=== PATIENT | female | born 2000 | race Caucasian/White ===

== ENCOUNTER 2018-11-09 19:51 | Emergency (ER) | payer BC ==
--- NOTE | 2018-11-09 19:58 | ER Report ---
History and Physical Time Seen By MD: 19:58 HPI/ROS CHIEF COMPLAINT: Syncope HISTORY OF PRESENT ILLNESS: 18-year-old female presents with dizziness and near- syncope this afternoon. Patient admits she was out drinking last night. She woke up with a mild headache and a hangover this morning. She ate and felt better. She also noted the onset of cold symptoms this morning. She's had a sore throat. She notes no fever. She notes that several of her friends have been sick, but nobody he's had strep throat. Patient this afternoon, went to the bathroom and had diarrhea. She got diaphoretic and clammy with a bout of nausea while on the toilet. She thought a warm shower might make her feel better. She turned on the shower and then she blacked out and was on the floor. She denies any injuries. Patient states last menstrual period was 2 months ago, which she has an IUD and she is sexually active. She denies . Patient denies vaginal bleeding or spotting. Patient denies dysuria. REVIEW OF SYSTEMS: Respiratory: No cough, no dyspnea. Cardiovascular: No chest pain, no palpitations. Gastrointestinal: No vomiting, no abdominal pain. Musculoskeletal: No back pain. Allergies: Coded Allergies: No Known Drug Allergies (Unverified , 11/09/18) Home Meds Active Scripts Ondansetron 4 Mg Odt (ONDANSETRON 4 MG ODT) 4 Mg Tab.rapdis, 4 MG PO Q6H PRN for NAUSEA/VOMITING, #15 TAB Prov:LUDMILA KHAN DO 11/09/18 Reviewed Nurses Notes: Yes Old Medical Records Reviewed: Yes Constitutional Vital Sign - Last 24 Hours 11/09/18 11/09/18 11/09/18 11/09/18 19:51 20:00 20:03 20:06 Pulse ??? 74 65 Resp 12 6 B/P (MAP) 132/77 (95) 132/77 Pulse Ox 93 92 O2 Delivery Room Air 11/09/18 11/09/18 11/09/18 11/09/18 20:21 20:30 20:36 20:51 Pulse 63 65 65 Resp 6 20 18 B/P (MAP) 117/70 (86) Pulse Ox 92 93 92 11/09/18 11/09/18 11/09/18 11/09/18 21:00 21:06 21:21 21:30 Pulse 63 65 Resp 19 16 B/P (MAP) 122/63 (82) ???/??? (1665) Pulse Ox 93 92 11/09/18 11/09/18 11/09/18 11/09/18 21:36 21:41 21:56 22:00 Pulse ??? 69 67 B/P (MAP) 115/63 (80) Pulse Ox 91 92 11/09/18 11/09/18 11/09/18 11/09/18 22:11 22:26 22:30 22:41 Pulse 75 65 ??? B/P (MAP) 105/62 (76) Pulse Ox 92 91 93 Physical Exam General Appearance: The patient is alert, has no immediate need for airway protection and no current signs of toxicity. Vital signs stable, afebrile, pulse ox normal HEENT: Pupils equal and round no injection. TMs normal, oropharynx with mild erythema, no exudate or petechiae, no tonsillar hypertrophy Respiratory: Chest is non tender, lungs are clear to auscultation. No wheezing or rails, no chest wall tenderness Cardiac: regular rate and rhythm, no murmur Gastrointestinal: Abdomen is soft and non tender, no masses, bowel sounds gabriele l. Musculoskeletal: Neck: Neck is supple and non tender. No lymphadenopathy or meningismus Extremities have full range of motion and are non tender. No edema, no calf tenderness Skin: No rashes or lesions. DIFFERENTIAL DIAGNOSIS: After history and physical exam differential diagnosis was considered for syncope including but not limited to vasovagal syncope, arrhythmia, dehydration, viral syndrome and blood loss. Medical Decision Making Data Points Result Diagram: 11/09/18201511/09/182015 Laboratory Hematology Test 11/09/18 20:16 11/09/18 21:39 Red Blood Count 5.22 M/uL (4.17-5.56) Mean Corpuscular Volume 89.4 fL (80.0-96.0) Mean Corpuscular Hemoglobin 29.8 pg (26.0-33.0) Mean Corpuscular Hemoglobin Concent 33.3 g/dL (32.0-36.0) Red Cell Distribution Width 13.0 % (11.5-14.5) Mean Platelet Volume 11.3 fL (7.2-11.1) Neutrophils (%) (Auto) 79.9 % (39.4-72.5) Lymphocytes (%) (Auto) 8.5 % (17.6-49.6) Monocytes (%) (Auto) 9.6 % (4.1-12.4) Eosinophils (%) (Auto) 1.7 % (0.4-6.7) Basophils (%) (Auto) 0.3 % (0.3-1.4) Nucleated RBC Relative Count (auto) 0.0 /100WBC Neutrophils # (Auto) 7.6 K/uL (2.0-7.4) Lymphocytes # (Auto) 0.8 K/uL (1.3-3.6) Monocytes # (Auto) 0.9 K/uL (0.3-1.0) Eosinophils # (Auto) 0.2 K/uL (0.0-0.5) Basophils # (Auto) 0.0 K/uL (0.0-0.1) Nucleated RBC Absolute Count (auto) 0.00 K/uL Sodium Level 141 mmol/L (137-145) Potassium Level 3.5 mmol/L (3.5-5.0) Chloride Level 106 mmol/L (98-107) Carbon Dioxide Level 24 mmol/L (22-31) Blood Urea Nitrogen 12 mg/dl (7-18) Creatinine 0.90 mg/dl (0.52-1.04) Glomerular Filtration Rate Calc > 60.0 Random Glucose 147 mg/dl (75-110) Calcium Level 9.1 mg/dl (8.4-10.2) Total Bilirubin 0.8 mg/dl (0.2-1.3) Aspartate Amino Transf (AST/SGOT) 17 U/L (0-35) Alanine Aminotransferase (ALT/SGPT) 11 U/L (0-56) Alkaline Phosphatase 75 U/L (0-126) Total Protein 7.4 g/dl (6.3-8.2) Albumin 4.4 g/dl (3.5-5.0) Human Chorionic Gonadotropin, Qual Negative (NEGATIVE) Urine Color Yellow Urine Clarity Clear Urine pH 5.0 pH (4.8-9.5) Urine Specific [place] 1.029 Urine Protein Negative mg/dL (NEGATIVE) Urine Glucose (UA) Negative mg/dL (NEGATIVE) Urine Ketones Negative mg/dL (NEGATIVE) Urine Blood Negative (NEGATIVE) Urine Nitrite Negative (NEGATIVE) Urine Bilirubin Negative (NEGATIVE) Urine Urobilinogen Negative mg/dL (0.2-1.9) Urine Leukocyte Esterase Negative (NEGATIVE) Urine RBC 1 /HPF (0-2/HPF) Urine WBC 7 /HPF (0-5/HPF) Urine Squamous Epithelial Cells Many /LPF (</=FEW) Urine Bacteria Negative /HPF (NONE-FEW) Urine Mucus Few /HPF (NONE-FEW) Chemistry Test 11/09/18 20:16 11/09/18 21:39 White Blood Count 9.5 k/uL (4.5-11.0) Red Blood Count 5.22 M/uL (4.17-5.56) Hemoglobin 15.5 g/dL (12.0-16.0) Hematocrit 46.6 % (34.0-47.0) Mean Corpuscular Volume 89.4 fL (80.0-96.0) Mean Corpuscular Hemoglobin 29.8 pg (26.0-33.0) Mean Corpuscular Hemoglobin Concent 33.3 g/dL (32.0-36.0) Red Cell Distribution Width 13.0 % (11.5-14.5) Platelet Count 145 K/uL (150-450) Mean Platelet Volume 11.3 fL (7.2-11.1) Neutrophils (%) (Auto) 79.9 % (39.4-72.5) Lymphocytes (%) (Auto) 8.5 % (17.6-49.6) Monocytes (%) (Auto) 9.6 % (4.1-12.4) Eosinophils (%) (Auto) 1.7 % (0.4-6.7) Basophils (%) (Auto) 0.3 % (0.3-1.4) Nucleated RBC Relative Count (auto) 0.0 /100WBC Neutrophils # (Auto) 7.6 K/uL (2.0-7.4) Lymphocytes # (Auto) 0.8 K/uL (1.3-3.6) Monocytes # (Auto) 0.9 K/uL (0.3-1.0) Eosinophils # (Auto) 0.2 K/uL (0.0-0.5) Basophils # (Auto) 0.0 K/uL (0.0-0.1) Nucleated RBC Absolute Count (auto) 0.00 K/uL Glomerular Filtration Rate Calc > 60.0 Calcium Level 9.1 mg/dl (8.4-10.2) Total Bilirubin 0.8 mg/dl (0.2-1.3) Aspartate Amino Transf (AST/SGOT) 17 U/L (0-35) Alanine Aminotransferase (ALT/SGPT) 11 U/L (0-56) Alkaline Phosphatase 75 U/L (0-126) Total Protein 7.4 g/dl (6.3-8.2) Albumin 4.4 g/dl (3.5-5.0) Human Chorionic Gonadotropin, Qual Negative (NEGATIVE) Urine Color Yellow Urine Clarity Clear Urine pH 5.0 pH (4.8-9.5) Urine Specific [place] 1.029 Urine Protein Negative mg/dL (NEGATIVE) Urine Glucose (UA) Negative mg/dL (NEGATIVE) Urine Ketones Negative mg/dL (NEGATIVE) Urine Blood Negative (NEGATIVE) Urine Nitrite Negative (NEGATIVE) Urine Bilirubin Negative (NEGATIVE) Urine Urobilinogen Negative mg/dL (0.2-1.9) Urine Leukocyte Esterase Negative (NEGATIVE) Urine RBC 1 /HPF (0-2/HPF) Urine WBC 7 /HPF (0-5/HPF) Urine Squamous Epithelial Cells Many /LPF (</=FEW) Urine Bacteria Negative /HPF (NONE-FEW) Urine Mucus Few /HPF (NONE-FEW) Urinalysis Test 11/09/18 21:39 Urine Color Yellow Urine Clarity Clear Urine pH 5.0 pH (4.8-9.5) Urine Specific [place] 1.029 Urine Protein Negative mg/dL (NEGATIVE) Urine Glucose (UA) Negative mg/dL (NEGATIVE) Urine Ketones Negative mg/dL (NEGATIVE) Urine Blood Negative (NEGATIVE) Urine Nitrite Negative (NEGATIVE) Urine Bilirubin Negative (NEGATIVE) Urine Urobilinogen Negative mg/dL (0.2-1.9) Urine Leukocyte Esterase Negative (NEGATIVE) Urine RBC 1 /HPF (0-2/HPF) Urine WBC 7 /HPF (0-5/HPF) Urine Squamous Epithelial Cells Many /LPF (</=FEW) Urine Bacteria Negative /HPF (NONE-FEW) Urine Mucus Few /HPF (NONE-FEW) EKG/Imaging EKG Interpretation 12 lead EK Rhythm: normal sinus rhythm [place]: normal QRS: normal ST segments: normal, no evidence of ischemia or dysrhythmia ED Course/Re-evaluation Clinical Indication for ER IV: Hydration, IV Access ED Course Patient was admitted to an examination room. H&P was done. The differential diagnoses was considered. Patient on clinical examination is stable vital signs. She is feeling ill, has had vomiting and had syncope. Patient was out last night drinking and has a hangover this morning she felt better after eating. She subsequently his cold symptoms and sounds like she suffered vasovagal syncope. She was treated with IV fluids and Zofran 4 mg IV. Diagnostic laboratory studies were unremarkable. Her EKG was unremarkable. Her test was negative. Her urinalysis showed no signs of infection. Patient was discharged with a prescription for Zofran and advised to increase her fluid intake. Patient advised to follow-up with primary care student health if unimproved in 3-5 days. Decision to Disposition Date: November 09, 2018 Decision to Disposition Time: 21:51 Depart Departure Latest Vital Signs Vital Signs Date Time Temp Pulse Resp B/P (MAP) Pulse Ox O2 Delivery O2 Flow Rate FiO2 11/09/18 22:41 ??? 93 11/09/18 22:30 105/62 (76) 11/09/18 21:21 16 11/09/18 20:03 Room Air Impression: Primary Impression: Vasovagal syncope Additional Impression: Viral syndrome Condition: Improved Disposition: HOME OR SELF-CARE Referrals: TORRES WEST MD New Scripts Ondansetron 4 Mg Odt (ONDANSETRON 4 MG ODT) 4 Mg Tab.rapdis 4 MG PO Q6H PRN for NAUSEA/VOMITING, #15 TAB Prov: LUDMILA KHAN DO 11/09/18 Patient Instructions: Syncope (ED), Viral Syndrome (ED) Additional Instructions: Increase fluid intake Use Zofran/intensive trauma to control nausea Take other medications to control your symptoms such as Tylenol, Advil Follow-up with student health or primary care if unimproved in 3-5 days Problem Qualifiers LUDMILA KHAN DO November 09, 2018 19:58
[2018-11-09] MEDS ORDERED: NS(*) 0.9% 1000 ML BAG 1,000 ML IV ONE (20:06)
[2018-11-09] MEDS ORDERED: ONDANSETRON 4 MG/2 ML VIAL IVP ONE (20:10)
[2018-11-09 20:26] LABS: PLATELET COUNT, AUTOMATED 145 K/uL (150-450)
--- NOTE | 2018-11-09 21:31 | EKG ---
FACILITY: [facility] - [place] PATIENT NAME: ETHAN MADDOX : [id number] MR: [id number]: [id number] EXAM DATE: ORDERING PHYSICIAN: LUDMILA KHAN TECHNOLOGIST: HAWK Test Reason : NEAR SYNCOPE Blood Pressure : / mmHG Vent. Rate : 062 BPM Atrial Rate : 062 BPM P-R Int : 130 ms QRS Dur : 086 ms QT Int : 414 ms P-R-T Axes : 048 078 072 degrees QTc Int : 420 ms Normal sinus rhythm Normal ECG When compared with ECG of 09-NOV-2018 20:27, No significant change was found Confirmed by YAIMA MURGUIA ([id number]) on 11/10/2018 5:50:14 AM Referred By: Confirmed By:YAIMA MURGUIA
[2018-11-09] MEDS ORDERED: ONDA4TAB9 PO (21:52)
[2018-11-09] MEDS ORDERED: ONDANSETRON 4 MG ODT TH SL ONE (22:10)
[2018-11-09 22:30] VITALS: BP 105/62
== END 2018-11-09 22:44 | disposition home or self-care (01) ==
LOC: ER 20:00
DX: R55 Syncope and collapse (principal); B34.9 Viral infection, unspecified
CPT/HCPCS: 81001; 84703; 85025; 93005; 96361; 96374; 99283; J2405; J7030; S0119; 82040; 82247; 82310; 82374; 82435; 82565; 82947; 84075; 84132; 84155; 84295; 84450; 84460; 84520